=== PATIENT | female | born 1965 | race Caucasian/White ===

== ENCOUNTER 2016-05-29 21:22 | Emergency (ER) | payer OTHER ==
[2016-05-29 21:49] VITALS: RESP 18
--- NOTE | 2016-05-29 21:59 | ED ---
General Adult HPI - General Chief complaint: Neck Pain/Injury Stated complaint: Slip/Fall/Back and Neck pain Time Seen by Provider: 05/29/16 21:50 Source: patient, RN notes reviewed Mode of arrival: ambulatory Limitations: no limitations - History of Present Illness Initial comments: Patient is a 50-year-old female who presents emergency room today with chief complaint of a fall that occurred approximately 3 hours ago. Does admit that she slipped on some steps fell down onto her tailbone. Does admit to increased pain in the tailbone with increased pain to her neck. She does admit to chronic neck pain feels that this is just exacerbation of her chronic pain. Denies any specific head injury or loss consciousness. Does admit to a mild headache. This is because of her neck pain. Patient does admit that she went to work feels that the pain in the tailbone and lower back became worse with movements. Patient states she did take ibuprofen at home for over 800 mg with little relief the symptoms. Denies any bowel or bladder incontinence retention. Denies any saddle anesthesia. Denies any other complaints or symptoms at this time. Patient denies any recent fever, chills, shortness of breath, chest pain, abdominal pain, nausea or vomiting, dysuria or hematuria, constipation or diarrhea, or visual changes, or any other complaints. - Related Data Previous Rx's Medication Instructions Recorded Cyclobenzaprine [Flexeril] 10 mg PO TID #20 tab 05/29/16 Hydrocodone/Acetaminophen [Pontiac 1 each PO Q6HR PRN #20 tab 05/29/16 5-325] Ibuprofen [Motrin] 800 mg PO Q6HR PRN #30 tab 05/29/16 Allergies Allergy/AdvReac Type Severity Reaction Status Date / Time No Known Allergies Allergy Verified 05/29/16 21:49 Review of Systems ROS Statement: Those systems with pertinent positive or pertinent negative responses have been documented in the HPI. ROS Other: All systems not noted in ROS Statement are negative. Past Medical History Past Medical History: Asthma, Sleep Apnea/CPAP/BIPAP Additional Past Medical History / Comment(s): was dx long ago with sleep apnes does not have or use c-pap History of Any Multi-Drug Resistant Organisms: None Reported Past Surgical History: No Surgical Hx Reported Past Psychological History: No Psychological Hx Reported Smoking Status: Never smoker Past Alcohol Use History: None Reported Past Drug Use History: None Reported - Past Family History Mother Family Medical History: AFIB, Hypertension Additional Family Medical History / Comment(s): heart mumur Father Family Medical History: Diabetes Mellitus, Eye Disorder, Hypertension General Exam - General Exam Comments Initial Comments: General: The patient is awake and alert, in no distress, and does not appear acutely ill. Eye: Pupils are equal, round and reactive to light, extra-ocular movements are intact. No nystagmus. There is normal conjunctiva bilaterally. No signs of icterus. Ears, nose, mouth and throat: There are moist mucous membranes and no oral lesions. Neck: The neck is supple, there is no tenderness or JVD. Cardiovascular: There is a regular rate and rhythm. No murmur, rub or gallop is appreciated. Respiratory: Lungs are clear to auscultation, respirations are non-labored, breath sounds are equal. No wheezes, stridor, rales, or rhonchi. Gastrointestinal: Soft, non-distended, non-tender abdomen without masses or organomegaly noted. There is no rebound or guarding present. No CVA tenderness. Bowel sounds are unremarkable. Musculoskeletal: Normal appearance of cervical, thoracic, lumbar spine. No tenderness over the spinous processes any serious. Paravertebrally tender to the lower lumbar on the left and right. Tender over the coccyx. Strength 5/5. Sensation intact. Pulses equal bilaterally 2+. Neurological: A&O x 3. CN II-XII intact, There are no obvious motor or sensory deficits. Coordination appears grossly intact. Speech is normal. Skin: Skin is warm and dry and no rashes or lesions are noted. Psychiatric: Cooperative, appropriate mood & affect, normal judgment. Limitations: no limitations Course Vital Signs 05/29/16 05/29/16 21:41 22:29 Temperature 98.9 F 97.8 F Pulse Rate 110 H 94 Respiratory 18 18 Rate Blood Pressure 181/94 147/85 O2 Sat by Pulse 95 97 Oximetry Medical Decision Making - Medical Decision Making Patient's x-rays reviewed and are unremarkable. Results were discussed with the patient. Patient will be discharged home with a prescription for Flexeril, ibuprofen, [place] for her pain. Advised follow-up the family doctor or return here to emergency room if any symptoms increase or worsen or for any other concerns. Disposition Clinical Impression: Coccyx contusion, Acute low back pain Disposition: HOME SELF-CARE Condition: Good Instructions: Coccyx Injury (ED) Additional Instructions: Please use medication as discussed. Please follow-up with family doctor in the next 2 days of symptoms have not improved. Please return to emergency room if the symptoms increase or worsen or for any other concerns. Prescriptions: Cyclobenzaprine [Flexeril] 10 mg PO TID #20 tab Hydrocodone/Acetaminophen [Pontiac 5-325] 1 each PO Q6HR PRN #20 tab PRN Reason: Pain Ibuprofen [Motrin] 800 mg PO Q6HR PRN #30 tab PRN Reason: Pain Time of Disposition: 22:54
--- NOTE | 2016-05-29 22:14 | XR ---
EXAMINATION TYPE: XR lumbar spine 2 or 3V DATE OF EXAM: 05/29/2016 10:11 PM COMPARISON: NONE HISTORY: Back pain TECHNIQUE: 3 views FINDINGS: Lumbar vertebra have normal alignment. Posterior elements are intact. Disc spaces are dian l. Sacroiliac joints are normal. IMPRESSION: Normal lumbar spine.
--- NOTE | 2016-05-29 22:15 | XR ---
EXAMINATION TYPE: XR sacrum coccyx DATE OF EXAM: 05/29/2016 10:11 PM COMPARISON: NONE HISTORY: Back pain TECHNIQUE: 3 views FINDINGS: Segments have normal alignment. Sacroiliac joints appear normal. IUD is noted. There is no sign of a fracture. IMPRESSION: Normal sacrum and coccyx exam.
[2016-05-29 22:30] VITALS: BP 147/85; PULSE 94; TEMP 97.8
[2016-05-29] MEDS ORDERED: HYDROcodone/APAP 5-325MG 1 EACH TAB PO STA (22:45)
--- NOTE | 2016-05-29 22:45 | XR ---
EXAMINATION TYPE: XR cervical spine comp DATE OF EXAM: 05/29/2016 10:17 PM COMPARISON: NONE HISTORY: Neck pain TECHNIQUE: 5 views FINDINGS: Vertebra are fairly normal alignment. There is slight narrowing at C 5 6 disc space. The po sterior elements are intact. Neural foramina are widely patent. Atlantoaxial facet joint is normal. T here are no cervical ribs. IMPRESSION: Mild spondylosis at C5-6. No fracture.
== END 2016-05-29 23:03 | disposition home or self-care (01) ==
LOC: EC 21:22
DX: S30.0XXA Contusion of lower back and pelvis, initial encounter (principal); M54.5 Low back pain; M47.892 Other spondylosis, cervical region; G47.30 Sleep apnea, unspecified; W10.9XXA Fall (on) (from) unspecified stairs and steps, initial encounter
CPT/HCPCS: 72050; 72100; 72220; 99283

== ENCOUNTER → 2020-02-23 | Outpatient (CLI) | payer OTHER ==
--- NOTE | 2020-02-26 10:42 | MM ---
Reason for exam: screening (asymptomatic). History: Patient is postmenopausal and is nulliparous. Taking hormonal contraceptives for 5 years beginning at age 49. Physical Findings: A clinical breast exam by your physician is recommended on an annual basis and results should be correlated with mammographic findings. MG Screening Mammo w CAD Bilateral CC and MLO view(s) were taken. The breast tissue is heterogeneously dense. This may lower the sensitivity of mammography. There is no discrete abnormality. No significant changes when compared with prior studies. ASSESSMENT: Negative, BI-RAD 1 RECOMMENDATION: Routine screening mammogram of both breasts in 1 year.
== END | disposition home or self-care (01) ==
LOC: RADMAMWWP 11:15
PROVIDERS: ATTEND Family Medicine
DX: Z12.31 Encounter for screening mammogram for malignant neoplasm of breast (principal)
CPT/HCPCS: 77067

== ENCOUNTER 2020-05-06 12:33 | Emergency (ER) | payer OTHER ==
[2020-05-06] MEDS ORDERED: KETOROLAC 15 MG/ML 1 ML VIAL IVP STA (13:31)
[2020-05-06 13:50] LABS: Basophils # (A) 0.1 k/uL (0-0.2); Basophils % (A) 1 %; Eosinophils # (A) 0.3 k/uL (0-0.7); Eosinophils % (A) 3 %; HCT 41.6 % (34.0-46.0); HGB 14.5 gm/dL (11.4-16.0); Lymphocytes # (A) 1.5 k/uL (1.0-4.8); Lymphocytes % (A) 18 %; MCH 29.9 pg (25.0-35.0); MCHC 34.9 g/dL (31.0-37.0); MCV 85.7 fL (80.0-100.0); Mean Platelet Volume 7.9; Monocytes # (A) 0.4 k/uL (0-1.0); Monocytes % (A) 5 %; Neutrophils # (A) 5.9 k/uL (1.3-7.7); Neutrophils % (A) 72 %; Platelet Count 307 k/uL (150-450); RBC 4.86 m/uL (3.80-5.40); RDW 13.7 % (11.5-15.5); WBC 8.2 k/uL (3.8-10.6)
[2020-05-06 13:59] LABS: Albumin 4.2 g/dL (3.5-5.0); Calcium 9.7 mg/dL (8.4-10.2); Total Bilirubin 0.7 mg/dL (0.2-1.3); Total Protein 7.3 g/dL (6.3-8.2)
--- NOTE | 2020-05-06 14:06 | XR ---
EXAMINATION TYPE: XR chest 2V DATE OF EXAM: 05/06/2020 COMPARISON: 01/27/2015 HISTORY: Shortness of breath TECHNIQUE: Frontal and lateral views of the chest are obtained. FINDINGS: Scattered senescent parenchymal changes noted. Hyperinflation compatible with COPD. No evidence for infiltrate. No evidence for atelectasis. Heart size is stable. Mediastinal structures are stable and grossly unremarkable. No evidence for hilar prominence. Degenerative changes dorsal spine. IMPRESSION: 1. No evidence for acute pulmonary disease.
--- NOTE | 2020-05-06 14:26 | CT ---
EXAMINATION TYPE: CT soft tissue neck w con DATE OF EXAM: 05/06/2020 HISTORY: Neck fullness COMPARISON: NONE CT DLP: 406.1 mGycm. Automated Exposure Control for Dose Reduction was Utilized. TECHNIQUE: CT scan of the neck is performed with IV Contrast, patient injected with 100 mL of Isovue 300, axial images are obtained, coronal and sagittal reformatted images are reviewed. FINDINGS: Airway: No gross abnormality seen. Parotid/submandibular glands: No gross abnormality seen. Carotid/Vascular Structures: Some abnormal curvilinear soft tissue along the posterior aspect of the right carotid bulb extends into proximal internal carotid artery, suspect noncalcified plaque causing stenosis approaching 50% . Mild to moderate mixed plaque at left carotid bulb. No significant stenos is. Osseous Structures: Slight underlying scoliotic curvature. Grade 1 retrolisthesis C5 on C6. Mild to m oderate disc space narrowing at this level. Other: Some scattered prominent but subcentimeter lymph nodes throughout the neck bilaterally. No def initive abnormal greater than 1 cm neck adenopathy. IMPRESSION: Patent airway. No obvious suspicious mass or fluid collection
--- NOTE | 2020-05-06 14:42 | ED ---
General Adult HPI - General Chief complaint: ENT Stated complaint: throat pain Time Seen by Provider: 05/06/20 12:51 Source: patient Mode of arrival: ambulatory Limitations: no limitations - History of Present Illness Initial comments: 54-year-old female presenting for neck fullness. Patient states that she has active neck pain and fullness anteriorly. She states that this has been going on for months, she also endorses hoarseness of her voice. She was told that this is most likely GERD by her primary care provider she states that she has had any imaging studies. Patient states she was referred to ENT who only did a hearing test. Patient states today she has a slight headache she states is unusual for her to have a headache she denies this being the worse headache of her life thunderclap headache sudden onset. She has a nausea vomiting chest pain shortness of breath. She states that she was uncomfortable with the neck discomfort but states that she still to swallow and breathe without difficulty. pt states she was a little short of breath after chasing her dog around today but otherwise no signficiant dyspnea. pt denies leg swelling, weakness/sensatino deficits, facial asymmetry, diplopia vision loss or changes. She states the p ast few months she has had on and off lightheadedness. Patient denies additional complaints. Upon arrival patient appears well nontoxic in no acute distress. she states she only presented to have her neck fullness/compression figured out. - Related Data Home Medications Medication Instructions Recorded Confirmed Atorvastatin Calcium [Lipitor] 10 mg PO HS 05/06/20 05/06/20 Cholecalciferol (Vitamin D3) 125 mcg PO DAILY 05/06/20 05/06/20 [Vitamin D3 (5000 Iu)] Cyanocobalamin (Vitamin B-12) 1,000 mcg PO DAILY 05/06/20 05/06/20 [Vitamin B-12] Losartan Potassium [Cozaar] 100 mg PO HS 05/06/20 05/06/20 Magnesium Oxide [Magox 400] 400 mg PO DAILY 05/06/20 05/06/20 Omeprazole 40 mg PO HS 05/06/20 05/06/20 hydroCHLOROthiazide [Hydrodiuril] 25 mg PO HS 05/06/20 05/06/20 Allergies Allergy/AdvReac Type Severity Reaction Status Date / Time No Known Allergies Allergy Verified 05/06/20 12:48 Review of Systems ROS Statement: Those systems with pertinent positive or pertinent negative responses have been documented in the HPI. ROS Other: All systems not noted in ROS Statement are negative. Past Medical History Past Medical History: Asthma, Sleep Apnea/CPAP/BIPAP Additional Past Medical History / Comment(s): was dx long ago with sleep apnes does not have or use c-pap History of Any Multi-Drug Resistant Organisms: None Reported Past Surgical History: No Surgical Hx Reported Past Psychological History: No Psychological Hx Reported Smoking Status: Never smoker Past Alcohol Use History: None Reported Past Drug Use History: None Reported - Past Family History Mother Family Medical History: AFIB, Hypertension Additional Family Medical History / Comment(s): heart mumur Father Family Medical History: Diabetes Mellitus, Eye Disorder, Hypertension General Exam - General Exam Comments Initial Comments: General: The patient is awake and alert, in no distress- Eye: +3 mm pupils are equal, round and reactive to light, extra-ocular movements are intact. No nystagmus. There is normal conjunctiva bilaterally. No signs of icterus. Ears, nose, mouth and throat: There are moist mucous membranes and no oral lesions.oropharynx nonerythematous uvula midline. Neck: The neck is supple, there is no tenderness or JVD. no appreciated neck fullness. some hoarseness is appreciated of voice. Cardiovascular: There is a regular rate and rhythm. No murmur, rub or gallop is appreciated. Respiratory: Lungs are clear to auscultation, respirations are non-labored, breath sounds are equal. No wheezes, stridor, rales, or rhonchi. Gastrointestinal: Soft, non-distended, non-tender abdomen without masses or organomegaly noted. There is no rebound or guarding present.- Musculoskeletal: Normal ROM, no tenderness. Strength 5/5. Sensation intact. Radial and DP pulses equal bilaterally 2+. Neurological: A&O x 3. CN II-XII intact,memory intact to immediately, intermediate and long-term recall. Able to follow simple verbal. Able to name a common object (pen). High quality, labial (pa) and lingual (la) speech. Low quality posterior pharynx/larynx (ga) voice sounds. Able to express general knowledge (days in a week). No hemineglect or inattention noted. Finger agnosia (-) and spatially oriented (identified L index finger touched R shoulder with L index finger).Light touch and temperature sensation present over the face, chest, abdomen, back, UE bilaterally, and LE bilaterally. Able to localize point during point localization b/l and extinction. No visible bulk atrophy, hypertrophy, fasciculations, or myoclonus of the UE or LE b/l. Full PROM in UE and LE b/l. Bilateral muscle strength 5/5 for the following muscles: deltoid, biceps, triceps, brachioradialis, wrist extensors/flexor, hip flexor, hip abductors/adductors, hamstrings, quadriceps, feet dorsiflexors/plantar flexors. Finger to nose, finger to the examiners finger, and heel to araujo coordinated and accurate b/l. Coordinated and even demonstration of hand flip, finger to thumb, and toe tap b/l. Gait is coordinated and even in stride.(-) pronator drift. No nuchal rigidity. (-) Brudzinskis and Kernig signs. Skin: Skin is warm and dry and no rashes or lesions are noted. Psychiatric: Cooperative, appropriate mood & affect, normal judgment. Limitations: no limitations Course Vital Signs 05/06/20 05/06/20 12:44 14:30 Temperature 98.3 F 98.2 F Pulse Rate 82 84 Respiratory 19 18 Rate Blood Pressure 117/77 119/72 O2 Sat by Pulse 96 97 Oximetry Medical Decision Making - Medical Decision Making 54yo neck fullness, hoarseness of voice. CT soft tissues no mass. pharynx is not erythematous uvula midline. There is no stridor tripoding drooling patient is tolerable intake. Patient denies any chest pain shortness of breath. Patient states she has a headache she states she is not concerned about as she frequently gets headaches that she is on computers often it was relieved with one dose of Toradol. EKG no acute findings chest x-ray clear lungs clear. no le g swelling. patient troponin (-). she later on admitted that she did have a previous H. Pylori infection--ddx does include for esophagnitis/GERD. at this time patient states she is comfortable with discharge. this case attending provider throughout case Dr. Prather who is agreeable to discharge with GI follow- up she discharged appearing well Ventricular rate 70 bpm, KS interval 186 most seconds, QRS quaker 82 ms, QT/QTC 396/[address] elevation or depression is appreciated some artifact i n V2 is noted. - Lab Data Result diagrams: 05/06/20 13:34 05/06/20 13:34 Lab Results 05/06/20 05/06/20 05/06/20 Range/Units 13:34 13:34 13:34 WBC 8.2 (3.8-10.6) k/uL RBC 4.86 (3.80-5.40) m/uL Hgb 14.5 (11.4-16.0) gm/dL Hct 41.6 (34.0-46.0) % MCV 85.7 (80.0-100.0) fL MCH 29.9 (25.0-35.0) pg MCHC 34.9 (31.0-37.0) g/dL RDW 13.7 (11.5-15.5) % Plt Count 307 (150-450) k/uL MPV 7.9 Neutrophils % 72 % Lymphocytes % 18 % Monocytes % 5 % Eosinophils % 3 % Basophils % 1 % Neutrophils # 5.9 (1.3-7.7) k/uL Lymphocytes # 1.5 (1.0-4.8) k/uL Monocytes # 0.4 (0-1.0) k/uL Eosinophils # 0.3 (0-0.7) k/uL Basophils # 0.1 (0-0.2) k/uL Sodium 138 (137-145) mmol/L Potassium 4.0 (3.5-5.1) mmol/L Chloride 103 (98-107) mmol/L Carbon Dioxide 24 (22-30) mmol/L Anion Gap 11 mmol/L BUN 12 (7-17) mg/dL Creatinine 0.93 (0.52-1.04) mg/dL Est GFR (CKD-EPI)AfAm 81 (>60 ml/min/1.73 sqM) Est GFR (CKD-EPI)NonAf 70 (>60 ml/min/1.73 sqM) Glucose 98 (74-99) mg/dL Calcium 9.7 (8.4-10.2) mg/dL Total Bilirubin 0.7 (0.2-1.3) mg/dL AST 33 (14-36) U/L ALT 18 (4-34) U/L Alkaline Phosphatase 114 (38-126) U/L Troponin I <0.012 (0.000-0.034) ng/mL Total Protein 7.3 (6.3-8.2) g/dL Albumin 4.2 (3.5-5.0) g/dL Disposition Clinical Impression: Change in voice, Hoarseness, Throat pain, Hx of headache, Light-headed feeling Disposition: HOME SELF-CARE Condition: Good Instructions (If sedation given, give patient instructions): Gastroesophageal Reflux Disease (ED) Additional Instructions: Please use medication as discussed. Please follow-up with family doctor in the next 2 days, recommend outpatient GI follow-up. Please return to emergency room if the symptoms increase or worsen or for any other concerns. Is patient prescribed a controlled substance at d/c from ED?: No Referrals: Trent Lane MD [Primary Care Provider] - 1-2 days Tatyana Mack MD [STAFF PHYSICIAN] - 1-2 days Time of Disposition: 14:42
[2020-05-06 14:53] VITALS: BP 119/72; PULSE 84; RESP 18; TEMP 98.2
== END 2020-05-06 14:54 | disposition home or self-care (01) ==
LOC: EC 12:33
DX: R07.0 Pain in throat (principal); R51.9 Headache, unspecified; R42 Dizziness and giddiness; R49.0 Dysphonia; R49.9 Unspecified voice and resonance disorder; R11.2 Nausea with vomiting, unspecified; R07.9 Chest pain, unspecified; R06.02 Shortness of breath; G47.30 Sleep apnea, unspecified; Z79.899 Other long term (current) drug therapy; Z99.89 Dependence on other enabling machines and devices
CPT/HCPCS: 36415; 93005; 80053; 84484; 85025; 71046; 70491; 99284; 96374; J1885; Q9967

== ENCOUNTER 2021-02-17 07:56 | Outpatient (CLI) | payer OTHER ==
[~2021-02-17 07:56] MED LIST: BAMLANIVIMAB (EUA) 700 MG, ETESEVIMAB (EUA) 1,400 MG in SODIUM CHLORIDE 0.9% 50 ML IVPB ONE; SODIUM CHLORIDE 0.9% 50 ML IVPB ONE; SODIUM CHLORIDE 0.9% 500 ML 500 ML in EMPTY BAG 1 BAG IV PRN
[2021-02-17 08:30] VITALS: RESP 16
[2021-02-17 09:47] VITALS: BP 125/66; PULSE 88; TEMP 98.3
== END 2021-02-17 09:45 ==
LOC: PROCWHC3 07:56
PROVIDERS: ATTEND Family Medicine
DX: U07.1 COVID-19 (principal); E66.9 Obesity, unspecified; Z68.34 Body mass index [BMI] 34.0-34.9, adult
CPT/HCPCS: 96360; J3490; M0243

== ENCOUNTER → 2021-02-19 | Outpatient (CLI) | payer OTHER ==
[2021-02-19 17:19] LABS: Basophils % (A) 0 %; Eosinophils # (A) 0.1 k/uL (0-0.7); Eosinophils % (A) 1 %; HCT 42.3 % (34.0-46.0); HGB 14.3 gm/dL (11.4-16.0); Lymphocytes # (A) 1.4 k/uL (1.0-4.8); Lymphocytes % (A) 20 %; MCH 29.1 pg (25.0-35.0); MCHC 33.7 g/dL (31.0-37.0); MCV 86.3 fL (80.0-100.0); Monocytes # (A) 0.3 k/uL (0-1.0); Monocytes % (A) 5 %; Neutrophils # (A) 5.2 k/uL (1.3-7.7); Neutrophils % (A) 73 %; Platelet Count 262 k/uL (150-450); RDW 13.5 % (11.5-15.5); WBC 7.1 k/uL (3.8-10.6)
[2021-02-19 17:22] LABS: ALT 198 U/L (4-34); AST 152 U/L (14-36); African American GFR (CKD) >90 (>60 ml/min/1.73 sqM); Albumin 3.7 g/dL (3.5-5.0); Albumin/Globulin Ratio 1.3; Alkaline Phosphatase 227 U/L (38-126); Anion Gap 7 mmol/L; Blood Urea Nitrogen 18 mg/dL (7-17); Carbon Dioxide 27 mmol/L (22-30); Chloride 100 mmol/L (98-107); Globulin 2.9 g/dL; Glucose 122 mg/dL (74-99); Non-African American GFR(CKD) 78 (>60 ml/min/1.73 sqM); Potassium 3.6 mmol/L (3.5-5.1); Sodium 134 mmol/L (137-145); Total Bilirubin 0.7 mg/dL (0.2-1.3); Total Protein 6.6 g/dL (6.3-8.2)
== END | disposition home or self-care (01) ==
LOC: LABWHC1 15:52
PROVIDERS: ATTEND Physician Assistant Medical
DX: R06.00 Dyspnea, unspecified (principal)
CPT/HCPCS: 36415; 80053; 85025; 85379

== ENCOUNTER → 2024-06-13 | Outpatient (CLI) | payer BC ==
--- NOTE | 2024-06-13 09:09 | CT ---
EXAMINATION TYPE: CT pelvis wo con DATE OF EXAM: 06/13/2024 COMPARISON: None. CLINICAL INDICATION: Female, 58 years old with history of N533 SACROCOCCYGEAL DISORDERS; PHH, SACRAL/ COCCYX PAIN CT DLP: 828 mGycm Automated exposure control for dose reduction was used. FINDINGS: Sacroiliac joints are symmetric and felt within normal limits. No suspicious narrowing or spurring. N o joint space sclerosis is identified. There is mild axial joint space loss in both hips and acetabular spurring. Pubic symphysis is intact. No groin hernia or adenopathy. There are some scattered colonic diverticula greatest distally. No acu te diverticulitis. No abnormal bowel dilatation. No free fluid in the pelvis. Tiny fat-containing umb ilical hernia is noted. IMPRESSION: Sacroiliac joints felt symmetric and within normal limits on CT. [facility], , 06/13/2024 9:07 AM
== END | disposition home or self-care (01) ==
LOC: RADCTMAIN 08:18
PROVIDERS: ATTEND Physical Medicine & Rehabilitation
DX: M53.3 Sacrococcygeal disorders, not elsewhere classified (principal)
CPT/HCPCS: 72192